=== PATIENT | male | born 1965 | race African-American/Black ===

== ENCOUNTER 2016-11-29 20:57 | Emergency (ER) | payer SELFPAY ==
[~2016-11-29] VITALS: Ht 170.2 cm; Wt 81.6 kg
[2016-11-29 21:20] VITALS: BP 141/79
[2016-11-29] MEDS ORDERED: HYDROCODONE/APAP 10/325MG 1 EA TABLET PO ONE (21:30)
[2016-11-29] MEDS ORDERED: TDAP [DIPH/PERTUSSIS/TET] 0.5 ML VIAL IM ONE ×2 (21:30→21:33)
[2016-11-29] MEDS ORDERED: AMOX/CLAVULANATE 875 MG TABLET PO ONE (21:30)
[2016-11-29] MEDS ORDERED: LIDOCAINE HCL/PF 1% 30 ML VIAL TP ONE (21:30)
[2016-11-29] MEDS ORDERED: AMOX/CLAVULANATE 875 MG TABLET ONE (21:32)
[2016-11-29] MEDS ORDERED: HYDROCODONE/APAP 5/325MG 1 EACH TABLET ONE ×2 (21:33→22:28)
--- NOTE | 2016-11-29 21:35 | NUR ---
WOUND CARE IN PROGRESS.
[2016-11-29] MEDS ORDERED: HYDROCODONE/APAP 5/325MG 1 EACH TABLET PO ONE ×2 (22:00→22:30)
--- NOTE | 2016-11-29 22:00 | NUR ---
XRAY IN PROGRESS.
--- NOTE | 2016-11-29 23:48 | NUR ---
PT'S FINGER WAS SUTURED, BLEEDING STOPPED, WRAPPED WITH KERLEX AND FINGER SPLINT APPLIED.
--- NOTE | 2016-11-29 23:49 | NUR ---
Patient discharged to home in stable condition. Written and verbal after care instructions given. Patient verbalizes understanding of instruction AND RX. PT'S IS DRIVING PT HOME. VSS. PT AMBULATED OUT WITH A STEADY GAIT.
== END 2016-11-29 23:51 | disposition home or self-care (01) ==
LOC: ER 21:00
DX: S61.250A Open bite of right index finger without damage to nail, initial encounter (principal); S61.210A Laceration without foreign body of right index finger without damage to nail, initial encounter; W54.0XXA Bitten by dog, initial encounter; Y93.89 Activity, other specified; Y92.89 Other specified places as the place of occurrence of the external cause; Y99.8 Other external cause status
CPT/HCPCS: 12002; 73140; 90471; 90715; 99284; A4606; A4649; A6403; J3490; Z7610

== ENCOUNTER 2016-12-01 18:55 | Emergency (ER) | payer SELFPAY ==
[~2016-12-01] VITALS: Ht 175.3 cm; Wt 106.6 kg
[2016-12-01 19:52] VITALS: BP 147/87
[2016-12-01] MEDS ORDERED: IBUPROFEN 600 MG TABLET PO ONE ×2 (20:03→20:30)
--- NOTE | 2016-12-01 20:41 | NUR ---
WOUND CARE PROVIDED. FINGER SPLINT AND SLING PROVIDED. D/C IN STABLE CONDITION.
== END 2016-12-01 20:45 | disposition home or self-care (01) ==
LOC: ER 18:55
DX: S61.250D Open bite of right index finger without damage to nail, subsequent encounter (principal); L03.011 Cellulitis of right finger; J45.909 Unspecified asthma, uncomplicated; W54.0XXD Bitten by dog, subsequent encounter
CPT/HCPCS: A4606; Z7610